=== PATIENT | male | born 1995 | race Caucasian/White ===

== ENCOUNTER → 2019-08-31 14:07 | Outpatient (CLI) | payer SELFPAY ==
[2019-08-31 11:18] VITALS: BMI 32.2
[2019-08-31 14:26] LABS: Mucous, Urine 0 SEEN /hpf (<or=2+); Red Blood Cells-Urine 0 SEEN /hpf (0-5); White Blood Cells 0 SEEN /hpf (0-5)
[2019-08-31 14:35] LABS: Color, Urine Yellow (Yellow); Glucose, Dipstick Normal (Normal); Ketone-Dipstick Negative (Negative); Leukocyte Esterase-Dipstick Negative /ul (Negative); Nitrite-Dipstick Negative (Negative); Occult Blood-Urine Negative /ul (Negative); Protein-Dipstick Negative (Negative); Urine Bilirubin Dipstick Negative (Negative); Urine Clarity Clear (Clear); Urine Urobilinogen Normal (Normal)
[2019-08-31 14:51] LABS: Bacteria RARE /hpf (None Seen); Squamous Epithelial Cells - UA 0-5 SEEN /hpf (0-5)
== END ==
PROVIDERS: Visit Provider Physician Assistant Surgical
DX: R30.0 Dysuria (principal)
CPT/HCPCS: 81001; 87086

== ENCOUNTER → 2020-08-08 | Outpatient (CLI) | payer BC, SELFPAY | END | disposition home or self-care (01) | PROVIDERS: Referring Provider Physician Assistant; Visit Provider Physician Assistant | DX: J06.9 Acute upper respiratory infection, unspecified (principal) | CPT/HCPCS: 87635; U0003 ==

== ENCOUNTER 2024-11-05 01:53 | Emergency (ER) | payer SELFPAY ==
[2024-11-05 01:53] VITALS: BP 161/94; PULSE 86; RESP 16; TEMP 36.6; O2SAT 97; BMI 35.1
[2024-11-05 02:29] LABS: Absolute Lymphocyte Count 1.83 X10^3/uL (0.83-4.51); Absolute Neutrophil Count 4.8 X10^3/uL (2.0-7.7); Basophil# 0.04 X10^3/uL; Basophil% 0.5 % (0-1); Eosinophil# 0.17 X10^3/uL; Eosinophils% 2.2 % (0-5); Hematocrit 43.6 % (40-54); Hemoglobin 15.8 g/dL (13.0-16.5); Lymphocyte # 1.83 X10^3/ul (0.83-4.51); Lymphocyte % 23.2 % (19-41); Mean Corp Hgb Conc 36.2 g/dL (32-36); Mean Corpuscular Hgb 32.2 pg (27.0-32.0); Mean Platelet Vol. 11.1 fl (6.2-12.0); Monocyte# 1.05 X10^3/uL; Monocyte% 13.3 % (0-10); NRBC Flagged by Analyzer 0 % (0-5); Neutrophil # 4.75 X10^3/uL (2.7-7.7); Neutrophil % 60.3 % (47-70); Platelet Count 231 K/mm3 (150-450); RBC Distribution Width CV 12.4 % (11.6-14.6); RBC Distribution Width SD 40.7 fl (35.1-43.9); White Blood Count 7.9 K/mm3 (4.4-11.0)
[2024-11-05] MEDS: Ondansetron 4 MG/2 ML Vial IV (02:38)
[2024-11-05] MEDS: Ketorolac 15 MG/ML Vial IV (02:38)
[2024-11-05] MEDS: 0.9% Normal Saline (1000mL) 1,000 ML 999 ML IV (02:39)
[2024-11-05] MEDS: Famotidine 200 MG/20 ML MDV 20 MG in 0.9% Normal Saline (Pres. free 8 ML 300 MG IV (02:41)
[2024-11-05 03:11] LABS: ALB/GLOB Ratio 1.3 RATIO (0.9-2.4); AST(SGOT) 35 U/L (<=37); Alanine Aminotransfer ALT/SGPT 68 U/L (<=46); Albumin, Serum 4.3 g/dL (3.5-5.0); Alkaline Phosphatase 61 U/L (40-129); Anion Gap 14 (5-15); BUN 16 mg/dL (4-19); BUN/Creat Ratio 13.8 RATIO (10-20); Calcium,Total 9.2 mg/dL (7.6-11.0); Carbon Dioxide 23.6 mmol/L (21.0-32.0); Chloride 104 mmol/L (98-108); Creatinine, Serum 1.12 mg/dL (0.70-1.20); EST Glomerular Filtration Rate 92 (>60); Globulin 3.2 g/dL (2.2-4.2); Glucose 99 mg/dL (70-99); Lipase 30 U/L (13-75); Potassium 3.4 mmol/L (3.3-5.1); Protein, Total 7.5 g/dL (5.9-8.4); Sodium Level 141 mmol/L (133-145); Total Bilirubin 1.14 mg/dL (0.00-1.30)
--- NOTE | 2024-11-05 03:17 | EDS_ITS ---
HPI HPI - GI History of Present Illness Chief Complaint: Abd Pain Informant: patient Narrative Narrative: Patient is a 29-year-old male denies any significant past medical history presenting with abdominal pain. He states he had stomach but that was going around his household on Saturday, 4 days ago. He had associated vomiting and explosive diarrhea. He states he felt better with back to work the next 2 days. Last evening he started to have stomach pains again. Started have pain of his right mid abdomen rating to his side and less pronounced a mild/dull left-sided pain. Pain is intermittent. Notes it is better with movement. He states he has had further diarrhea. Denies any fevers. With right-sided pain his was concerned this could be appendicitis (she had similar symptoms with her appendicitis last year) and he came in for further evaluation. Did not take anything for symptoms prior to arrival. Denies a history of any abdominal surgeries. No fever or chills reported. Denies any urinary symptoms. No hist ory of kidney stones. No other complaints or concerns reported at this time. PFSH PFSH Medical History no medical history Home Medications ?Medication ?Instructions ?Recorded ?Last Taken ?Type dicyclomine 10 mg capsule 10 mg PO TID PRN abdominal p ain 11/05/24 Unknown Rx #20 caps famotidine 20 mg tablet (Pepcid) 20 mg PO BID #14 tabs 11/05/24 Unknown Rx ondansetron 4 mg disintegrating 4 mg PO Q8H PRN PRN Na usea #10 tabs 11/05/24 Unknown Rx tablet Allergy/AdvReac Type Severity Reaction Status Date / Time No Known Allergies Allergy Verified 11/05/24 01:53 Social History Smoking Status: Never smoker ROS ROS ED Constitutional Constitutional ED: Denies chills or fever(s) Respiratory/Chest Respiratory/Chest: Denies cough Gastrointestinal Gastrointestinal: Reports abdominal pain, diarrhea and nausea; Denies vomiting Genitourinary Genitourinary ED: Denies dysuria or hematuria Musculoskeletal Musculoskeletal: Denies back pain or myalgias Integumentary Denies rash Neurologic Neurologic: Denies weakness EXAM Physical Exam Const Vital Signs: 11/05/24 01:53 Temperature 98 F Temperature Source Oral Pulse Rate 86 Respiratory Rate 16 Blood Pressure 161/94 H Blood Pressure Mean 116 Pulse Ox 97 Oxygen Delivery Method Room Air Positive well nourished and well developed General Appearance ED: well developed and NAD HEENT Reports moist mucous membranes Eyes PERRL Resp normal respiratory effort and clear to auscultation bilaterally Cardio regular rate and regular rhythm GI non-distended GI Narrative: Negative Aburto sign. No pain at McBurney's point. Auscultation: normoactive bowel sounds Palpation: soft and tender RUQ; Negative for guarding or rigid Back/Spine no CVA tenderness Extremity full ROM General Extremety ED: Negative for edema General Extremity: Negative for edema Neuro Sensorium / Orientation: alert, oriented to person, oriented to place and oriented to time Motor Exam: Negative for general weakness Psych mental status grossly normal and thought process normal Skin no wounds General Skin Exam: Negative for jaundice MDM MDM MDM Narrative Medical decision making narrative: Patient evaluated for recurrent abdominal pain and diarrhea. Had GI bug with vomiting and diarrhea couple days ago. Swelling better but symptoms returned today. Does have some right abdominal pain was concerned about appendicitis. On exam patient overall is quite well-appearing. Does not have any pain in the right lower quadrant and I do not suspect appendicitis. He is mildly tender in his right upper quadrant however he has negative Aburto sign. Differential includes cholecystitis, gastritis, gastroenteritis, viral syndrome, mesenteric adenitis. Patient given IV fluids, Zofran, Toradol and Pepcid in the emergency room. On repeat evaluation he feels improved. Lab work largely unremarkable. He has a normal CBC and largely normal BMP. Liver panel shows a mild elevation of his ALT which is nonspecific. His total bili is normal. Urinalysis largely normal not consistent with infection or kidney stone. He continues to not have any pain in his right lower quadrant on repeat evaluation his right upper quadrant pain has improved. Low suspicion for acute cholecystitis. I did attempt bedside ultrasound of the gallbladder (it is nighttime and we do not have ultrasound at this time) but unable to visualize the gallbladder. At this time given his benign exam, normal white blood cell count and story more consistent with a viral syndrome I do not think requires a CT abdomen pelvis. He is agreeable with this. I will be discharged home with a prescription for Pepcid, Zofran and Bentyl. Given return precautions. Encouraged to follow-up with his primary care doctor. Discussed that if his pain returns or localizes to the right lower quadrant he should return to the ER we can perform CT imaging at that time. Discharged home in stable condition Lab Data Attestation: I reviewed the patient's lab results. Labs: Laboratory Results - last 24 hr 11/05/24 11/05/24 11/05/24 02:05 02:05 03:25 WBC 7.9 RBC 4.90 Hgb 15.8 Hct 43.6 MCV 89.0 MCH 32.2 H MCHC 36.2 H RDW Std Deviation 40.7 RDW Coeff of Viktoria 12.4 Plt Count 231 MPV 11.1 Immature Gran % (Auto) 0.500 Neut % (Auto) 60.3 Lymph % (Auto) 23.2 Nelson % (Auto) 13.3 H Eos % (Auto) 2.2 Baso % (Auto) 0.5 Absolute Neuts (auto) 4.8 Absolute Lymphs (auto) 1.83 Nucleated RBC % 0 Sodium 141 Potassium 3.4 Chloride 104 Carbon Dioxide 23.6 Anion Gap 14 BUN 16 Creatinine 1.12 Estim Creat Clear Calc 131.10 Est GFR (MDRD) Non-Af 92 BUN/Creatinine Ratio 13.8 Glucose 99 Calcium 9.2 Total Bilirubin 1.14 AST 35 ALT 68 H Alkaline Phosphatase 61 Total Protein 7.5 Albumin 4.3 Globulin 3.2 Albumin/Globulin Ratio 1.3 Lipase 30 Cancelled Urine Color Yellow Urine Clarity Clear Urine pH 6.0 Ur Specific [place] 1.015 Urine Protein 15 H Urine Glucose (UA) Normal Urine Ketones Negative Urine Occult Blood 10 H Urine Nitrite Negative Urine Bilirubin Negative Urine Urobilinogen Normal Ur Leukocyte Esterase Negative Urine RBC 0-5 SEEN Urine WBC 0-5 SEEN Ur Squamous Epith Cells 0-5 SEEN Urine Bacteria 1+ Urine Mucus 0 SEEN Discharge Plan Triage Chief Complaint: Abd Pain ED Provider: Chen Rosas Dx/Rx/DC Orders Clinical Impression: Right-sided abdominal pain of unknown cause, Diarrhea Instructions: ED Diarrhea, Unknown Cause, ED Abdominal Pain Unkn Cause Male... Prescriptions: New dicyclomine 10 mg capsule 10 mg PO TID PRN (Reason: abdominal pain) Qty: 20 0RF famotidine [Pepcid] 20 mg tablet 20 mg PO BID Qty: 14 0RF ondansetron 4 mg tablet,disintegrating 4 mg PO Q8H PRN PRN (Reason: Nausea) Qty: 10 0RF Primary Care Provider: Lionel Turner Referrals: Lionel Turner MD [Primary Care Provider] - Print Language: [place] Disposition Disposition: Home, Self Care
[2024-11-05 03:42] LABS: Color, Urine Yellow (Yellow); Glucose, Dipstick Normal (Normal); Ketone-Dipstick Negative (Negative); Leukocyte Esterase-Dipstick Negative /ul (Negative); Nitrite-Dipstick Negative (Negative); Occult Blood-Urine 10 /ul (Negative); Protein-Dipstick 15 mg/dl (Negative); Specific Gravity, Urine 1.015 (1.002-1.030); Urine Bilirubin Dipstick Negative (Negative); Urine Clarity Clear (Clear); Urine Urobilinogen Normal (Normal)
[2024-11-05 03:50] LABS: Bacteria 1+ /hpf (None Seen); Mucous, Urine 0 SEEN /hpf (<or=2+); Red Blood Cells-Urine 0-5 SEEN /hpf (0-5); Squamous Epithelial Cells - UA 0-5 SEEN /hpf (0-5); White Blood Cells 0-5 SEEN /hpf (0-5)
[2024-11-05 03:53] VITALS: BP 131/78; PULSE 75; RESP 12; TEMP 36.6; O2SAT 97
== END 2024-11-05 04:20 | disposition home or self-care (01) ==
PROVIDERS: Emergency Provider Emergency Medicine; PCP Family Medicine; Visit Provider Emergency Medicine
DX: R10.11 Right upper quadrant pain (principal); R11.10 Vomiting, unspecified; R19.7 Diarrhea, unspecified
CPT/HCPCS: 80053; 81001; 83690; 85025; 96361; 96374; 96375; 99283; A4216; J2405